=== PATIENT | female | born 1985 | race Caucasian/White ===

== ENCOUNTER 2019-03-28 19:48 | Emergency (ER) | payer MEDICAID ==
[~2019-03-28] VITALS: Ht 160 cm; Wt 108.6 kg
[2019-03-28] MEDS ORDERED: normal saline 1000ML IV soln IVB STA (20:01)
[2019-03-28] MEDS ORDERED: diphenhydrAMINE 50 mg/ml inj IV ONE (20:05)
[2019-03-28] MEDS ORDERED: LORazepam 2 mg/ml vial IV ONE ×2 (20:05→20:35)
[2019-03-28] MEDS ORDERED: famotidine/PF 10 mg/ml inj IV ONE (20:05)
[2019-03-28] MEDS ORDERED: methylPREDNISolone sod succ 125mg/2ml vial IV ONE (20:05)
[2019-03-28] MEDS ORDERED: epiNEPHrine 1 mg/ml inj IM ONE (20:05)
[2019-03-28 22:18] VITALS: BP 114/43
== END 2019-03-28 22:20 | disposition home or self-care (01) ==
LOC: ER 19:50
DX: T78.40XA Allergy, unspecified, initial encounter (principal); J45.909 Unspecified asthma, uncomplicated; Z91.013 Allergy to seafood; Y92.89 Other specified places as the place of occurrence of the external cause
CPT/HCPCS: 96372; 96374; 96375; 96376; 99283; J0171; J1200; J2060; J2930; J3490; J7030